=== PATIENT | female | born 1990 | race Caucasian/White ===

== ENCOUNTER 2018-08-30 08:44 | Inpatient (IN) ==
[2018-08-30] MEDS ORDERED: ZOFRAN IV PRN (15:42)
[2018-08-30] MEDS ORDERED: DESYREL PO PRN (15:42)
[2018-08-30] MEDS ORDERED: DULCOLAX PR PRN (15:42)
[2018-08-30] MEDS ORDERED: SEROQUEL PO PRN (15:42)
[2018-08-30] MEDS ORDERED: PHENOBARBITAL IV PRN (15:42)
[2018-08-30] MEDS ORDERED: TYLENOL PO PRN (15:42)
[2018-08-30] MEDS ORDERED: SENOKOT PO PRN (15:42)
[2018-08-30] MEDS ORDERED: ZOFRAN ODT PO PRN (15:42)
[2018-08-30] MEDS ORDERED: MAALOX PLUS LIQUID PO PRN (15:42)
[2018-08-30] MEDS ORDERED: MOTRIN PO PRN (15:42)
[2018-08-30] MEDS ORDERED: IMODIUM PO PRN (15:42)
[2018-08-30] MEDS ORDERED: D5W 1,000 ML IV PRN (15:42)
[2018-08-30] MEDS ORDERED: NICODERM PATCH TD PRN (15:42)
[2018-08-30] MEDS ORDERED: ZOFRAN IM PRN (15:42)
[2018-08-30 16:32] LABS: AMYLASE 41 U/L (20-200); LIPASE 16 U/L (13-60)
[2018-08-30] MEDS ORDERED: TUBERSOL ID ONE ×2 (17:00→18:00)
[2018-08-30] MEDS ORDERED: ROBAXIN PO PRN (21:13)
[2018-08-30] MEDS ORDERED: BENTYL PO PRN (21:13)
[2018-08-30] MEDS ORDERED: ATARAX PO PRN (21:13)
[2018-08-30] MEDS ORDERED: SINEMET 25/100 PO PRN (21:13)
[2018-08-30] MEDS: LIBRIUM PO SCH (21:51)
[2018-08-31] MEDS: LIBRIUM PO SCH ×4 (03:26→21:41)
[2018-08-31 06:17] LABS: UR AMPHETAMINES QUAL NONE DETECTED (NONE DETECT); UR BARBITUATES QUAL NONE DETECTED (NONE DETECT); UR BENZODIAZEPIN QUAL PRESUMPTIVE POSITIVE (NONE DETECT); UR CANNABINOIDS QUAL PRESUMPTIVE POSITIVE (NONE DETECT); UR COCAINE QUAL NONE DETECTED (NONE DETECT); UR METHADONE QUAL NONE DETECTED (NONE DETECT); UR METHAMPHETAMINE QUAL NONE DETECTED (NONE DETECT); UR OPIATES QUAL PRESUMPTIVE POSITIVE (NONE DETECT); UR OXYCODONE QUAL PRESUMPTIVE POSITIVE (NONE DETECT); UR PCP QUAL NONE DETECTED (NONE DETECT); UR PROPOXYPHENE QUAL NONE DETECTED (NONE DETECT); UR TCA QUAL NONE DETECTED (NONE DETECT)
[2018-08-31] MEDS: PROTONIX PO SCH (06:18)
[2018-08-31 07:48] LABS: HEMATOCRIT 43.3 % (37.0-47.0); HEMOGLOBIN 14.5 g/dL (12.0-16.0); MCH 28.8 PG (27-31); MCHC 33.5 g/dL (33-37); MCV 85.9 FL (81-99); MPV 8.9 FL (7.4-10.4); RBC 5.04 XMIL (4.2-5.4); RDW 13.4 % (11.5-14.5)
[2018-08-31 08:15] LABS: AGAP 8; ALBUMIN 3.1 g/dL (3.5-5.0); ALKALINE PHOSPHATASE 61 U/L (32-104); BUN 9 mg/dL (8-22); CALCIUM 8.9 mg/dL (8.8-10.2); CHLORIDE 105 mmol/L (98-107); COSMO 274; CREATININE 0.6 mg/dL (0.5-0.9); ESTIMATED GFR > 60; GLUCOSE 93 mg/dL (70-104); GOT 17 U/L (10-30); GPT 12 U/L (10-36); MAGNESIUM 1.9 mg/dL (1.5-2.7); POTASSIUM 4.2 mmol/L (3.5-5.1); SODIUM 138 mmol/L (136-145); TCO2 25 mmol/L (25-35)
[2018-08-31] MEDS: THERA M PLUS PO SCH (10:00)
[2018-08-31] MEDS: FOLIC ACID PO SCH (10:01)
[2018-08-31] MEDS: VITAMIN B-1 PO SCH (10:01)
[2018-08-31] MEDS: IMODIUM PO PRN ×2 (10:11→21:41)
[2018-08-31 10:22] LABS: URINE SOURCE CLEAN CATCH
[2018-08-31 10:30] LABS: BILIRUBIN URINE NEGATIVE (NEGATIVE); BLOOD URINE NEGATIVE (NEGATIVE); CLARITY SL. CLOUDY (CLEAR); COLOR YELLOW; GLUCOSE URINE NEGATIVE (NEGATIVE); KETONE URINE NEGATIVE (NEGATIVE); LEUKOCYTES URINE 1+ (NEGATIVE); NITRITE URINE NEGATIVE (NEGATIVE); PROTEIN URINE NEGATIVE (NEGATIVE); SP GRAVITY URINE 1.005; UROBILINOGEN URINE NORMAL
[2018-08-31 10:32] LABS: URINE BACTERIA 1+ /HFP; URINE EPITHELIAL CELLS <10 /HPF (<10)
[2018-08-31] MEDS ORDERED: ATARAX PO PRN (11:46)
[2018-08-31] MEDS: NICOTINE GUM BUCCAL PRN ×2 (13:22→18:13)
--- NOTE | 2018-09-01 03:59 | PROGRESS NOTE ---
DATE: 08/31/2018 SUBJECTIVE: Patient has no new complaints. States she still feels terrible, having muscle aches. Denies any fevers or chills. Denies any GI or issues otherwise. PHYSICAL EXAMINATION: Vital Signs: Temperature 98.1 degrees, pulse 72, respiratory 20, BP 97/46. General: Patient is awake, alert, currently in no distress. HEENT: Normocephalic. Neck: Supple. CARDIOVASCULAR: Regular rate. Chest: Clear. Abdomen: Soft. Extremities: Moves all extremities. ASSESSMENT: 1. Nausea, vomiting. 2. Abdominal pain. 3. Myalgias. 4. Paresthesias. 5. Paroxysmal sweating [*] PLAN: We will continue patient in the hospital. Continue to wean Suboxone. Further orders as needed. cc: Obi Tellez MD
[2018-09-01] MEDS: FOLIC ACID PO SCH (12:08)
[2018-09-01] MEDS: THERA M PLUS PO SCH (12:08)
[2018-09-01] MEDS: LIBRIUM PO SCH ×3 (12:08→18:11)
[2018-09-01] MEDS: VITAMIN B-1 PO SCH (12:09)
[2018-09-01] MEDS: NICOTINE GUM BUCCAL PRN (12:30)
[2018-09-01] MEDS: IMODIUM PO PRN (12:30)
[2018-09-01] MEDS: PROTONIX PO SCH (13:16)
[2018-09-01] MEDS: LIBRIUM PO PRN (21:54)
--- NOTE | 2018-09-02 02:03 | PROGRESS NOTE ---
DATE: 09/01/2018 SUBJECTIVE: Patient notes that overall she is feeling better. Denies any chest pain, palpitations. Denies any fevers or chills. Denies any dysuria or urinary frequency. PHYSICAL EXAMINATION: Vital Signs: Temperature 98 degrees, pulse 79, respiratory 18, BP 101/55. General: Patient is awake, alert, currently in no respiratory distress. HEENT: Normocephalic. Neck: Supple. CARDIOVASCULAR: Regular rate. No murmurs. Chest: Clear and nonlabored. Abdomen: Soft, nondistended, nontender. Extremities: Moves all extremities. ASSESSMENT: 1. Nausea and vomiting. 2. Abdominal pain. 3. Myalgias. 4. Paresthesias. 5. Polysubstance use and abuse. PLAN: We will continue patient in the hospital. We will continue Librium taper. Further orders as needed. cc: Obi Tellez MD
[2018-09-02] MEDS: NICOTINE GUM BUCCAL PRN ×2 (02:26→11:23)
[2018-09-02] MEDS: LIBRIUM PO PRN (02:26)
[2018-09-02] MEDS: PROTONIX PO SCH ×2 (05:39→06:01)
[2018-09-02] MEDS: VITAMIN B-1 PO SCH (10:39)
[2018-09-02] MEDS: THERA M PLUS PO SCH (10:39)
[2018-09-02] MEDS: FOLIC ACID PO SCH (10:39)
[2018-09-02] MEDS: IMODIUM PO PRN (11:24)
[2018-09-02 12:07] VITALS: BP 133/61
[2018-09-02] MEDS ORDERED: LIBRIUM PO SCH (21:00)
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
== END 2018-09-02 12:36 | disposition home or self-care (01) | DRG 897 ==
LOC: P.MEDSURG 15:29
PROVIDERS: ADMIT Family Medicine; ATTEND Family Medicine
CPT/HCPCS: 80053; 80104; 80301; 80305; 80307; 80320; 81001; 82055; 82150; 83690; 83735; 84703; 85027; 86580; A9270; G0431; G0434; G0477; G0480; G6040; S4995